=== PATIENT | female | born 1940 | race Caucasian/White ===

== ENCOUNTER 2017-02-03 12:26 | Day surgery (SDC) | payer OTHER ==
[~2017-02-03] VITALS: Ht 165.1 cm; Wt 83.9 kg
[~2017-02-03 12:26] MED LIST: ACID CONTROL150 MG PO; ALEVE220 MG PO; ALL DAY ALLERGY10 MG PO; AMLODIPINE BESYL5 MG PO; ASPIRIN EC325 MG PO; ASPIRIN325 MG PO; ATENOLOL100 MG PO; BENAZEPRIL HCL20 MG PO; CALCIUM 600 MG1 EACH PO; CELECOXIB200 MG PO; CINNAMON500 MG PO; CLEOCIN300 MG PO; CO Q-10100 MG PO; CYCLOBENZAPRINE5 MG PO; DEPAKOTE500 MG PO; FISH OIL500 MG PO; FLEXERIL10 MG PO; GLIPIZIDE10 MG PO; HYDROCHLOROTHIA25 MG PO; HYDROCODON-ACE1 EAC7 PO; LEVEMIR FL100 UNITS/ SC; LOVASTATIN20 MG PO; LYRICA150 MG PO; METFORMIN HCL1000 MG PO; MULTIPLE VITAM1 EACH PO; OMEPRAZOLE20 MG PO; OSTEO BI-FLEX1 EAC1 PO; SENNA PLUS TAB1 EACH PO; SODIUM CHLORIDE1 G1 PO; SUPER B-50 COM1 EAC1 PO; TRAMADOL HCL50 MG PO; VITAMIN B-6200 MG PO
[2017-02-03 13:00] LABS: POINT-OF-CARE METER ID UU13113694
[2017-02-03 13:28] VITALS: BP 172/75
[2017-02-03 16:36] LABS: POINT-OF-CARE METER ID UU13113675
[2017-02-03 17:40] VITALS: BP 144/77
[2017-02-03 18:45] VITALS: BP 153/67
== END 2017-02-03 18:45 | disposition home or self-care (01) ==
LOC: SDC 12:26
PROVIDERS: Podiatrist Foot & Ankle Surgery
PROC: 0Y6R0Z0 Detachment at Right 2nd Toe, Complete, Open Approach (ICD-10-PCS; principal; 2017-02-03)
DX: E11.621 Type 2 diabetes mellitus with foot ulcer (principal); L97.519 Non-pressure chronic ulcer of other part of right foot with unspecified severity; L03.031 Cellulitis of right toe; E11.42 Type 2 diabetes mellitus with diabetic polyneuropathy; I10 Essential (primary) hypertension; Z79.01 Long term (current) use of anticoagulants; Z83.3 Family history of diabetes mellitus; Z82.49 Family history of ischemic heart disease and other diseases of the circulatory system; Z79.82 Long term (current) use of aspirin; Z79.84 Long term (current) use of oral hypoglycemic drugs; Z79.4 Long term (current) use of insulin
CPT/HCPCS: 82948; 88305; 88311; J0690; J3010; S0020